=== PATIENT | female | born 1980 | race Caucasian/White ===

== ENCOUNTER 2016-10-23 11:08 | Emergency (ER) | payer OTHER ==
[2016-10-23 11:19] VITALS: BMI 33.9
[2016-10-23 11:25] VITALS: BP 118/77; PULSE 96; RESP 18; TEMP 98.9; O2SAT 100
--- NOTE | 2016-10-23 11:41 | C.PDOC ---
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 Patient reports that she is able to ambulate but with pain. Denies numbness, weakness, or other injuries. (Monika Sharma) History Per: Patient History/Exam Limitations: no limitations Onset/Duration Of Symptoms: Persistent Current Symptoms Are (Timing): Still Present Time Seen by Provider: 10/23/16 11:29 Chief Complaint (Nursing): Lower Extremity Problem/Injury Past Medical History Reviewed: Historical Data, Nursing Documentation, Vital Signs - Medical History PMH: Asthma Surgical History: (x4) Family History: States: Unknown Family Hx - Social History Hx Alcohol Use: No Hx Substance Use: No - Immunization History Hx Tetanus Toxoid Vaccination: No Hx Influenza Vaccination: No Hx Pneumococcal Vaccination: No Vital Signs: Last Vital Signs Temp 98.9 F 10/23/16 11:19 Pulse 96 H 10/23/16 11:19 Resp 18 10/23/16 11:19 BP 118/77 10/23/16 11:19 Pulse Ox 100 10/23/16 12:28 - [facility] Procedures EXTRACTION OF POC, LOW CERVICAL, OPEN APPROACH (08/29/15) OCCLUSION OF BILATERAL FALLOPIAN TUBES, OPEN APPROACH (08/29/15) Review Of Systems Constitutional: Negative for: Fever, Weakness Musculoskeletal: Positive for: Foot Pain Skin: Negative for: Bruising Neurological: Negative for: Weakness, Numbness Physical Exam - Physical Exam Appears: Non-toxic, No Acute Distress Skin: Normal Color, Warm, No Rash, No Ecchymosis Head: Atraumatic, Normacephalic Eye(s): bilateral: Normal Inspection Oral Mucosa: Moist Extremity: Normal ROM (Normal ankle and tib/fib), Capillary Refill (< 2 sec), Other (Right foot: (+) mild swelling with tenderness to the mid dorsal foot. No lateral tenderness. Normal ROM. ) Pulses: Left Radial: Normal, Right Radial: Normal Neurological/Psych: Oriented x3, Normal Motor, Normal Sensation Gait: Steady ED Course And Treatment O2 Sat by Pulse Oximetry: 100 (on RA) Pulse Ox Interpretation: Normal Medical Decision Making Medical Decision Making: Ortho shoe placed on the foot by medical tech and checked by me. On re-exam, the patient is ambulatory in the ED with steady gait. (Monika Sharma) Disposition - Disposition Disposition Time: 12:21 - Disposition Referrals: Melissa Leonard MD [Staff Provider] - Disposition: HOME/ ROUTINE Condition: GOOD Additional Instructions: Follow up with the medical doctor within 1-2 days without fail, Return if worsened. Prescriptions: Ibuprofen [Motrin] 600 mg PO TID #21 tab Instructions: Foot Contusion (ED) Forms: [facility] (Uruguayan), Work Excuse - Clinical Impression Clinical Impression: Foot contusion
--- NOTE | 2016-10-23 13:20 | RAD ---
PROCEDURE: Right Foot Radiographs. HISTORY: injury to the mid dorsal foot COMPARISON: None. FINDINGS: BONES: Normal. No fracture. JOINTS: Normal. SOFT TISSUES: Minimal dorsal soft tissue swelling OTHER FINDINGS: None. IMPRESSION: No fracture or dislocation Minimal dorsal soft tissue swelling
== END 2016-10-23 12:32 | disposition home or self-care (01) ==
LOC: C.ER 11:08
DX: S90.31XA Contusion of right foot, initial encounter (principal); W22.8XXA Striking against or struck by other objects, initial encounter; Y92.009 Unspecified place in unspecified non-institutional (private) residence as the place of occurrence of the external cause

== ENCOUNTER 2017-01-21 11:00 | Emergency (ER) | payer OTHER ==
[2017-01-21 11:20] VITALS: BMI 33.6
[2017-01-21 11:21] VITALS: TEMP 98.6
--- NOTE | 2017-01-21 11:52 | C.PDOC ---
History Of Present Illness 36 yo female come in for evaluation of Right shoulder pain gradually developed for past few days. 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 Pt describes pain as localized over top of Right shoulder, worse with Right arm lifting. Otherwise, pt denies known direct trauma or injury, fever, chills, skin changes, obvious deformity, denies weakness, sensory or vascular deficits to Right hand. Ambulate to ED for evaluation, not in any apparent distress. Time Seen by Provider: 01/21/17 11:36 Chief Complaint (Nursing): Upper Extremity Problem/Injury History Per: Patient Past Medical History Reviewed: Historical Data, Nursing Documentation, Vital Signs Vital Signs: Last Vital Signs Temp 98.6 F 01/21/17 11:20 Pulse 86 01/21/17 11:20 Resp 20 01/21/17 11:20 BP 116/67 01/21/17 11:20 Pulse Ox 100 01/21/17 11:52 - Medical History PMH: Anemia, Asthma Surgical History: (x4) - [facility] Procedures EXTRACTION OF POC, LOW CERVICAL, OPEN APPROACH (08/29/15) OCCLUSION OF BILATERAL FALLOPIAN TUBES, OPEN APPROACH (08/29/15) Family History: States: Unknown Family Hx - Social History Hx Alcohol Use: Yes Hx Substance Use: No - Immunization History Hx Tetanus Toxoid Vaccination: No Hx Influenza Vaccination: Yes (2016) Hx Pneumococcal Vaccination: No Review Of Systems Except As Marked, All Systems Reviewed And Found Negative. Constitutional: Negative for: Fever, Chills ENT: Negative for: Throat Pain Cardiovascular: Negative for: Chest Pain, Palpitations Respiratory: Negative for: Cough, Shortness of Breath, Wheezing Musculoskeletal: Positive for: Shoulder Pain. Negative for: Neck Pain, Back Pain Skin: Negative for: Rash, Bruising Neurological: Negative for: Weakness, Numbness, Altered Mental Status, Dizziness Physical Exam - Physical Exam Appears: Well, Non-toxic, No Acute Distress Skin: Normal Color, Warm, No Rash, No Ecchymosis Head: Normacephalic Eye(s): bilateral: PERRL Neck: Trachea Midline, No Step Off Deformity, Supple Chest: Symmetrical Cardiovascular: Rhythm Regular, No Murmur, No JVD Respiratory: No Decreased Breath Sounds, No Accessory Muscle Use, No Stridor, No Wheezing Extremity: Normal ROM (mild discomfort to Right shoulder abduction and extension. No neurovascular deficist distally to Right shoulder.), Tenderness ( over superior aspect Right shoulder, no defomrity.), Capillary Refill (less than 2sec to Right hand), No Deformity, No Swelling Neurological/Psych: Oriented x3, Normal Speech, Normal Motor, Normal Sensation, Normal Reflexes ED Course And Treatment O2 Sat by Pulse Oximetry: 100 Pulse Ox Interpretation: Normal - Other Rad Right shoulder X-Ray: Interpreted by Me, Viewed By Me Interpretation: (-) acute fx or dislocation Progress Note: On re-evaluation, pt is afebrile, hemodynamicaly stable. Non- toxic. PulseOx 100% RA. neck: Supple, (-) midline tenderness. Lungs: CTA B/L , BS equal B/L. CVS: (+)S1S2, reg. RUE: exam c/w shoulder strain. FAROM, no neurovascular deficits. Imaging review and appears normal. SLing, analgesics given. Pt advised. re.f to f/u with PMD, Ortho in 2-3 days for re-eavl. return to ED if any worsening ro new changes. Disposition Counseled Patient/Family Regarding: Studies Performed, Diagnosis, Need For Followup, Rx Given - Disposition Referrals: Chino Porter MD [Staff Provider] - Reagan Ramirez III, MD [Staff Provider] - Disposition: HOME/ ROUTINE Disposition Time: 11:51 Condition: STABLE Additional Instructions: LIGHT DUTY TO RIGHT SHOULDER FOR 1-2 WEEKS TAKE PAIN MEDICATION NEED FOLLOW UP WITH PMD AND ORTHOPEDIST IN 2-3 DAYS FOR RE-EVALUATION. RETURN TO ED IF ANY WORSENING OR NEW CHANGES. Prescriptions: Ibuprofen [Motrin Tab] 600 mg PO Q6 #14 tab Methocarbamol [Robaxin] 500 mg PO TID #14 tab Instructions: Shoulder Sprain (ED) Forms: [facility] (Lithuanian), Work Excuse - Clinical Impression Clinical Impression: Shoulder sprain
--- NOTE | 2017-01-21 11:57 | RAD ---
PROCEDURE: Radiographs of the Right Shoulder HISTORY: pain COMPARISON: None available. FINDINGS: BONES: No acute displaced fracture. The distal clavicle and underlying ribs appear intact. JOINTS: No acute dislocation. SOFT TISSUES: Soft tissues appear unremarkable. No evidence of radiopaque foreign body. IMPRESSION: No acute displaced fracture or dislocation evident. If symptoms persist or if there is continued clinical concern, x-ray follow-up in 7-10 days should be considered.
[2017-01-21 12:18] VITALS: BP 121/84; PULSE 78; RESP 16; O2SAT 98
== END 2017-01-21 12:17 | disposition home or self-care (01) ==
LOC: C.ER 11:00
DX: S43.401A Unspecified sprain of right shoulder joint, initial encounter (principal); X58.XXXA Exposure to other specified factors, initial encounter

== ENCOUNTER 2018-03-10 10:14 | Emergency (ER) | payer OTHER ==
[2018-03-10 10:14] VITALS: BMI 33.6
[2018-03-10 10:38] VITALS: TEMP 99.3
--- NOTE | 2018-03-10 12:07 | C.PDOC ---
History Of Present Illness 38 y/o female, with no significant PMHx, comes in with complaints of right-sided lower back pain after coughing. No associated trauma or fall. Patient also reports 2 days of non-productive cough, cold, and congestion. No fever. Patient otherwise denies any associated urinary complaints, flank pain, abdominal pain, nausea, or vomiting. She noticed the onset of pain after coughing. No saddle anesthesia, cauda equine symptoms, no encopresis or enuresis. Denies IV drug use. Patient denies taking any OTC medication for the pain or URI symptoms. Time Seen by Provider: 03/10/18 11:20 Chief Complaint (Nursing): Back Pain History Per: Patient History/Exam Limitations: no limitations Onset/Duration Of Symptoms: Days (x2) Current Symptoms Are (Timing): Still Present Associated Symptoms: Cough, Nasal Congestion. denies: Fever Past Medical History Reviewed: Historical Data, Nursing Documentation, Vital Signs Vital Signs: Last Vital Signs Temp 99.3 F 03/10/18 10:35 Pulse 82 03/10/18 10:35 Resp 16 03/10/18 10:35 BP 140/85 03/10/18 10:35 Pulse Ox 98 03/10/18 10:35 - Medical History PMH: Anemia, Asthma Surgical History: (x4) - [facility] Procedures EXTRACTION OF POC, LOW CERVICAL, OPEN APPROACH (08/29/15) OCCLUSION OF BILATERAL FALLOPIAN TUBES, OPEN APPROACH (08/29/15) Family History: States: Unknown Family Hx - Social History Hx Alcohol Use: Yes Hx Substance Use: No - Immunization History Hx Tetanus Toxoid Vaccination: No Hx Influenza Vaccination: Yes (2016) Hx Pneumococcal Vaccination: No Review Of Systems Constitutional: Negative for: Fever, Chills ENT: Positive for: Nose Discharge, Nose Congestion. Negative for: Ear Pain Cardiovascular: Negative for: Chest Pain Respiratory: Positive for: Cough. Negative for: Shortness of Breath, Wheezing Gastrointestinal: Negative for: Nausea, Vomiting, Abdominal Pain, Diarrhea Genitourinary: Negative for: Dysuria, Frequency, Incontinence, Hematuria Musculoskeletal: Positive for: Back Pain (after coughing) Skin: Negative for: Rash Neurological: Negative for: Weakness, Numbness, Headache, Dizziness Physical Exam - Physical Exam Appears: Non-toxic, No Acute Distress Skin: Warm, Dry Head: Normacephalic Eye(s): bilateral: Normal Inspection, PERRL, EOMI Ear(s): Bilateral: Normal (TMs clear, no erythema) Nose: Discharge (mild nasal congestion) Oral Mucosa: Moist Throat: Normal, No Erythema, No Exudate Neck: Trachea Midline, Supple, Other (No meningeal signs- negative kernig's and brudzinskis) Chest: Symmetrical Cardiovascular: Rhythm Regular, No Friction Rub Respiratory: No Rales, No Rhonchi, No Wheezing Gastrointestinal/Abdominal: Soft, No Tenderness, No Distention Back: No CVA Tenderness, No Vertebral Tenderness, Paraspinal Tenderness (Right- sided paralumbar tenderness) Extremity: Bilateral: Normal Color And Temperature, Normal ROM (x4) Pulses: Left Dorsalis Pedis: Normal, Right Dorsalis Pedis: Normal Neurological/Psych: Oriented x3, Normal Cranial Nerves, Normal Motor (Strength 5/5 to all 4 extremities), Normal Sensation, Normal Reflexes, Other (Neurologically intact, no focal deficits) Gait: Steady ED Course And Treatment O2 Sat by Pulse Oximetry: 98 (RA) Pulse Ox Interpretation: Normal - Other Rad XR LS spine X-Ray: Read By Radiologist Interpretation: Accession No. : [id number]. Patient Name / ID : RADHA NGUYEN / [id number]. Exam Date : 03/10/2018 11:49:41 ( Approved ). Study Comment : Sex / Age : F / 38Y. Creator : Dariana Sanchez MD. Dictator : Dariana Sanchez MD. Gold Burnisher : Senior Technical Manager : Dariana Sanchez MD. Approver2 : Report Date : 03/10/2018 13:08:55. My Comment : . Date of service: 03/10/2018. PROCEDURE: Radiographs of the Lumbar Spine. HISTORY: back pain. COMPARISON: Lumbar spine radiographs performed 03/30/16. FINDINGS: BONES: Alignment appears satisfactory. No listhesis. No acute displaced fracture identified. Small anterior osteophyte formation. DISC SPACES: Unremarkable. OTHER FINDINGS: Atherosclerotic calcifications of the aorta. 5 mm left pelvic calcification, likely phlebolith. IMPRESSION: No acute displaced fracture or subluxation identified. XR R shoulder X-Ray: Read By Radiologist Interpretation: Accession No. : [id number]. Patient Name / ID : RADHA NGUYEN / [id number]. Exam Date : 03/10/2018 11:49:17 ( Approved ). Study Comment : Sex / Age : F / 38Y. Creator : Dariana Sanchez MD. Dictator : Dariana Sanchez MD. Gold Burnisher : Senior Technical Manager : Dariana Sanchez MD. Approver2 : Report Date : 03/10/2018 13:02:51. My Comment : . PROCEDURE: Radiographs of the Right Shoulder. HISTORY: r shoulder pain. COMPARISON: Right shoulder radiographs performed 01/21/17. FINDINGS: BONES: No acute displaced fracture. The distal clavicle and underlying ribs appear intact. JOINTS: No acute dislocation. SOFT TISSUES: Soft tissues appear unremarkable. No evidence of radiopaque foreign body. IMPRESSION: No acute displaced fracture or dislocation evident. If symptoms persist or if there is continued clinical concern, x-ray follow-up in 7-10 days should be considered. Medical Decision Making Medical Decision Makin38 y/o F presents with cough (nonproductive), cold, and congestion for 2 days. Also reports developing right lower back pain after coughing. No saddle anesthesia, cauda equine symptoms, no encopresis or enuresis. No associated fever, SOB, or urinary complaints. Patient also has hx of chronic shoulder pain, requesting right shoulder x-ray. N/V intact in all extremities Impression: Flu vs viral illness, Back pain X-rays taken of lumbar spine and right shoulder. Flu swab sent. Patient treated with 5 mg PO Flexeril. Progress/Updates: Flu negative. Imaging reviewed, results discussed with patient. +phlebolith noted on LS spine film. Pt advised to follow up with OB. Given +flu in pt's children, will treat patient with Tamiflu. Patient remains afebrile, walking well, AAOx3, in no distress, stable for d/c home. Disposition - Disposition Referrals: Nikki Carr DO [Staff Provider] - Chino Porter MD [Staff Provider] - Disposition: HOME/ ROUTINE Disposition Time: 13:18 Condition: GOOD Additional Instructions: FOLLOW UP WITH OBGYN ( YOU HAD A POTENTIAL PHLEBOLITH IN YOUR IMAGING IN YOUR PELVIS) AND YOUR PRIMARY CARE DOCTOR PATRICK GARCIA, thank you for letting us take care of you today. Your provider was Travis Ortega and you were treated for BACK PAIN/COUGHING. The emergency medical care you received today was directed at your acute symptoms. If you were prescribed any medication, please fill it and take as directed. It may take several days for your symptoms to resolve. Return to the Emergency Department if your symptoms worsen, do not improve, or if you have any other problems. Please contact your doctor or call one of the physicians/clinics you have been referred to that are listed on the Patient Visit Information form that is included in your discharge packet. Bring any paperwork you were given at discharge with you along with any medications you are taking to your follow up visit. Our treatment cannot replace ongoing medical care by a primary care provider outside of the emergency department. Thank you for allowing the [facility] team to be part of your care today. If you had an X-Ray or CT scan: A Radiologist will review the ED reading if any change in treatment is needed we will contact you. If you had a blood, urine, or wound culture: It will take several days for the results, if any change in treatment is needed we will contact you. If you had an STI test: It will take 48 hours for the results. Please call after 1 week if you have not heard back. Prescriptions: Cyclobenzaprine [Flexeril] 5 mg PO DAILY PRN 5 Days #5 tab PRN Reason: Pain, Moderate (4-7) Oseltamivir Cap [Tamiflu] 75 mg PO BID 5 Days #10 cap Instructions: Influenza (ED), Flu, Adult (DC), Low Back Pain (DC) Forms: [employer] [facility] (Portuguese) - Clinical Impression Clinical Impression: Low back pain, Viral URI, Influenza - Scribe Statement The provider has reviewed the documentation as recorded by the Jose Hernandez Provider Attestation: All medical record entries made by the Jose were at my direction and personally dictated by me. I have reviewed the chart and agree that the record accurately reflects my personal performance of the history, physical exam, medical decision making, and the department course for this patient. I have also personally directed, reviewed, and agree with the discharge instructions and disposition.
--- NOTE | 2018-03-10 13:06 | RAD ---
PROCEDURE: Radiographs of the Right Shoulder HISTORY: r shoulder pain COMPARISON: Right shoulder radiographs performed 01/21/17 FINDINGS: BONES: No acute displaced fracture. The distal clavicle and underlying ribs appear intact. JOINTS: No acute dislocation. SOFT TISSUES: Soft tissues appear unremarkable. No evidence of radiopaque foreign body. IMPRESSION: No acute displaced fracture or dislocation evident. If symptoms persist or if there is continued clinical concern, x-ray follow-up in 7-10 days should be considered.
--- NOTE | 2018-03-10 13:12 | RAD ---
Date of service: 03/10/2018 PROCEDURE: Radiographs of the Lumbar Spine. HISTORY: back pain COMPARISON: Lumbar spine radiographs performed 03/30/16 FINDINGS: BONES: Alignment appears satisfactory. No listhesis. No acute displaced fracture identified. Small anterior osteophyte formation. DISC SPACES: Unremarkable. OTHER FINDINGS: Atherosclerotic calcifications of the aorta. 5 mm left pelvic calcification, likely phlebolith. IMPRESSION: No acute displaced fracture or subluxation identified.
[2018-03-10 13:33] VITALS: BP 120/76; PULSE 75; RESP 18; O2SAT 99
== END 2018-03-10 13:35 | disposition home or self-care (01) ==
LOC: C.ER 10:14
DX: J11.1 Influenza due to unidentified influenza virus with other respiratory manifestations (principal); M54.5 Low back pain